=== PATIENT | female | born 1985 | race Caucasian/White ===

== ENCOUNTER 2017-05-28 00:18 | Emergency (ER) | payer OTHER ==
[~2017-05-28] VITALS: Ht 167.6 cm; Wt 79.8 kg
[~2017-05-28 00:18] MED LIST: ESCI10TA PO
--- NOTE | 2017-05-28 01:02 | NUR ---
PT C/O SHOOTING BACK PAIN X 1 DAY. REPORTS HX OF BACK PAIN THAT SHE HAS A PRESCRIPTION FOR, BUT CANNOT REMEMBER THE NAME.
[2017-05-28] MEDS ORDERED: HYDROMORPHONE 1 MG/1 ML DISP.SYRIN IM ONE (01:45)
[2017-05-28] MEDS ORDERED: diphenhydrAMINE 50 MG/1 ML VIAL IM ONE (01:45)
--- NOTE | 2017-05-28 01:56 | NUR ---
Patient discharged to home in stable conditon. Written and verbal after care instructions given. Patient verbalizes understanding of instructions. Ambulated from ER with stable gait. All belongings with patient. Patient will be driven home by signficant other in private vehicle.
[2017-05-28 01:58] VITALS: BP 121/75
[2017-05-28] MEDS ORDERED: HYDROMORPHONE 1 MG/1 ML DISP.SYRIN ONE (02:03)
[2017-05-28] MEDS ORDERED: ONDANSETRON 4 MG/2 ML VIAL ONE (02:04)
== END 2017-05-28 01:59 | disposition home or self-care (01) ==
LOC: ER 00:21
DX: M54.5 Low back pain (principal)
CPT/HCPCS: A4663; J1170; J2405

== ENCOUNTER 2017-07-24 00:45 | Emergency (ER) | payer BC, OTHER ==
[~2017-07-24] VITALS: Ht 162.6 cm; Wt 61.2 kg
--- NOTE | 2017-07-24 01:00 | NUR ---
Pt ambulated to ER, c/o abdominal pain x 1 week, reports missed period, no nausea or vomiting, reports ovarian cyst history, and diarrhea today.
--- NOTE | 2017-07-24 01:04 | NUR ---
Dr. Best at bedside for MSE.
[2017-07-24 01:09] LABS: *BILIRUBIN,URIN NEGATIVE (NEGATIVE); *BLOOD, URINE NEGATIVE (NEGATIVE); *CLARITY,URINE SLIGHTLY CLOUDY (CLEAR); *COLOR,URINE YELLOW (YELLOW); *KETONES,URINE NEGATIVE (NEGATIVE); *PROTEIN,URINE NEGATIVE (NEGATIVE); *UROBILINOGEN,URINE 0.2 E.U./dl (NORMAL); LEUKOCYTE ESTERASE ,URINE NEGATIVE (NEGATIVE); NITRITE, URINE NEGATIVE (NEGATIVE); PH,URINE 5.5 (5.0-8.0); UGLUCOSE NEGATIVE (NEGATIVE)
[2017-07-24 01:12] LABS: *URINE HCG, QUAL POSITIVE (NEGATIVE)
[2017-07-24 01:15] LABS: BACTERIA,URINE MODERATE /HPF (NONE SEEN); MUCUS,URINE MANY /LPF (0-FEW); RBC,URINE 0-3 /HPF (0-3); SQUAMOUS EPITHELIAL CELL,UR MANY /HPF (NONE SEEN)
--- NOTE | 2017-07-24 01:30 | NUR ---
Patient discharged to home in stable conditon. Written and verbal after care instructions given. Patient verbalizes understanding of instructions. Patient out of ER with steady gait, VSS, no acute signs of distress, all belongings taken.
[2017-07-24 01:33] VITALS: BP 118/81
== END 2017-07-24 01:33 | disposition home or self-care (01) ==
LOC: ER 00:45
DX: O26.899 Other specified pregnancy related conditions, unspecified trimester (principal); R10.2 Pelvic and perineal pain; Z3A.00 Weeks of gestation of pregnancy not specified; Z79.899 Other long term (current) drug therapy
CPT/HCPCS: 84703; A4663

== ENCOUNTER 2018-08-22 00:05 | Emergency (ER) | payer BC, OTHER, MEDICAID ==
[~2018-08-22] VITALS: Ht 170.2 cm; Wt 84.4 kg
[2018-08-22 00:37] LABS: *BILIRUBIN,URIN NEGATIVE (NEGATIVE); *BLOOD, URINE NEGATIVE (NEGATIVE); *CLARITY,URINE CLEAR (CLEAR); *COLOR,URINE YELLOW (YELLOW); *KETONES,URINE NEGATIVE (NEGATIVE); *UROBILINOGEN,URINE 0.2 E.U./dl (NORMAL); LEUKOCYTE ESTERASE ,URINE NEGATIVE (NEGATIVE); NITRITE, URINE NEGATIVE (NEGATIVE); UGLUCOSE NEGATIVE (NEGATIVE)
--- NOTE | 2018-08-22 00:39 | NUR ---
Patient ambulated with stable gait. AAOX4. Speech is clear, speaks in complete sentences. No neuro deficits. Patient came in for c/o lower abdominal pain x1 week. Pain 4/10. Non radiating, intermittent pain. Respiratory even and unlabored, no cough no sob. No cardiovascular distress noted. Patient in bed at lowest position, side rails upx2, call light within reach. Fall precautions implemented per protocol.
[2018-08-22 00:42] LABS: *URINE HCG, QUAL NEGATIVE (NEGATIVE); BACTERIA,URINE NONE SEEN /HPF (NONE SEEN); RBC,URINE 0-3 /HPF (0-3); SQUAMOUS EPITHELIAL CELL,UR FEW /HPF (NONE SEEN); WBC,URINE 0-3 /HPF (0-3)
--- NOTE | 2018-08-22 00:54 | NUR ---
Patient discharged to home in stable conditon. Written and verbal after care instructions given. Patient verbalizes understanding of instructions. Patient ambulated with stable gait.
[2018-08-22 00:59] VITALS: BP 125/90
== END 2018-08-22 00:59 | disposition home or self-care (01) ==
LOC: ER 00:08
DX: R10.2 Pelvic and perineal pain (principal); Z79.899 Other long term (current) drug therapy
CPT/HCPCS: 84703; A4663

== ENCOUNTER 2019-11-08 20:12 | Emergency (ER) | payer BC, OTHER ==
[~2019-11-08] VITALS: Ht 170.2 cm; Wt 81.6 kg
[2019-11-08] MEDS ORDERED: CEPH-570 PO (20:20)
[2019-11-08] MEDS ORDERED: IBUP-1955 PO (20:20)
[2019-11-08] MEDS ORDERED: HYDROCODONE/APAP 5-325MG TABLET PO ONE (20:45)
[2019-11-08] MEDS ORDERED: PHENAZOPYRIDINE HCL 100 MG TABLET ONE (20:45)
[2019-11-08] MEDS ORDERED: HYDROCODONE/APAP 5-325MG TABLET ONE (20:45)
[2019-11-08] MEDS ORDERED: PHENAZOPYRIDINE HCL 100 MG TABLET PO ONE (20:45)
[2019-11-08 20:47] LABS: *URINE HCG, QUAL NEGATIVE (NEGATIVE)
[2019-11-08 20:48] LABS: *BILIRUBIN,URIN NEGATIVE (NEGATIVE); *BLOOD, URINE 1+ (NEGATIVE); *CLARITY,URINE SLIGHTLY CLOUDY (CLEAR); *COLOR,URINE LIGHT YELLOW (YELLOW); *KETONES,URINE NEGATIVE (NEGATIVE); *UROBILINOGEN,URINE 0.2 E.U./dl (NORMAL); LEUKOCYTE ESTERASE ,URINE 2+ (NEGATIVE); NITRITE, URINE NEGATIVE (NEGATIVE); UGLUCOSE NEGATIVE (NEGATIVE)
[2019-11-08 20:58] LABS: BACTERIA,URINE FEW /HPF (NONE SEEN); SQUAMOUS EPITHELIAL CELL,UR FEW /HPF (NONE SEEN)
--- NOTE | 2019-11-08 21:15 | NUR ---
Patient discharged to home in stable condition. Written and verbal after care instructions given. Patient verbalizes understanding of instructions. Stressed follow up or return to ER for worsening s/s. Ambulated from Er with stable gait. All belongings with patient.
[2019-11-08 21:16] VITALS: BP 128/81
== END 2019-11-08 21:16 | disposition home or self-care (01) ==
LOC: ER 20:13
DX: N39.0 Urinary tract infection, site not specified (principal)
CPT/HCPCS: 84703; 87086; A4663

== ENCOUNTER 2020-05-23 12:01 | Emergency (ER) | payer BC, OTHER ==
[~2020-05-23] VITALS: Ht 170.2 cm; Wt 81.6 kg
[~2020-05-23 12:01] MED LIST changes: +CEPH-570 PO; +IBUP-1955 PO
--- NOTE | 2020-05-23 12:35 | NUR ---
Patient discharged to home in stable condition. Written and verbal after care instructions given. Patient verbalizes understanding of instructions. Stressed follow up or return to ER for worsening s/s.
== END 2020-05-23 12:36 | disposition home or self-care (01) ==
LOC: ER 12:01
DX: U07.1 COVID-19 (principal); Z87.898 Personal history of other specified conditions
CPT/HCPCS: 99283; U0003; A4663

== ENCOUNTER 2020-06-26 21:14 | Emergency (ER) | payer BC, OTHER ==
[~2020-06-26] VITALS: Ht 170.2 cm; Wt 81.6 kg
--- NOTE | 2020-06-26 21:40 | NUR ---
Dr. Hobbs at bedside for MSE.
--- NOTE | 2020-06-26 21:55 | NUR ---
Xray at bedside.
[2020-06-26] MEDS ORDERED: HYDROCODONE/APAP 10-325 MG TABLET ONE (22:42)
[2020-06-26] MEDS ORDERED: HYDROCODONE/APAP 10-325 MG TABLET PO ONE (22:45)
--- NOTE | 2020-06-26 22:49 | NUR ---
Pt provided urine sample, sent to lab.
[2020-06-26 22:53] LABS: *URINE HCG, QUAL NEGATIVE (NEGATIVE)
[2020-06-26] MEDS ORDERED: KETOROLAC TROMETHAMINE 60 MG INJ IM ONE ×2 (23:45→23:46)
--- NOTE | 2020-06-27 | NUR ---
Patient discharged to home in stable condition. Written and verbal after care instructions given. Patient verbalizes understanding of instructions. Stressed follow up or return to ER for worsening s/s. Patient out of ER with steady gait, no acute signs of distress, VSS, all belongings taken, provided with copies of labs and xray.
[2020-06-27 00:01] VITALS: BP 133/90
== END 2020-06-27 00:01 | disposition home or self-care (01) ==
LOC: ER 21:14
DX: M79.662 Pain in left lower leg (principal); M79.661 Pain in right lower leg; S80.811A Abrasion, right lower leg, initial encounter; V43.62XA Car passenger injured in collision with other type car in traffic accident, initial encounter; Y92.411 Interstate highway as the place of occurrence of the external cause; R26.2 Difficulty in walking, not elsewhere classified
CPT/HCPCS: 73562; 73590 ×2; 84703; 96372; 99284; J1885; A4663

== ENCOUNTER 2020-08-31 22:29 | Emergency (ER) | payer BC, OTHER ==
[~2020-08-31] VITALS: Ht 170.2 cm; Wt 81.2 kg
[2020-08-31] MEDS: PSEUDOEPHEDRINE HCL 30 MG TABLET PO ONE (22:59)
[2020-08-31] MEDS ORDERED: PSEUDOEPHEDRINE HCL 30 MG TABLET ONE ×2 (23:03→23:04)
[2020-08-31] MEDS ORDERED: PSEU120T57 PO (23:38)
[2020-09-01 01:00] VITALS: BP 115/77
== END 2020-09-01 01:00 | disposition home or self-care (01) ==
LOC: ER 22:30
DX: J02.8 Acute pharyngitis due to other specified organisms (principal); J31.0 Chronic rhinitis; Z20.822 Contact with and (suspected) exposure to COVID-19; Z86.16 Personal history of COVID-19
CPT/HCPCS: 71045; 87400; A4663

== ENCOUNTER 2020-10-06 08:14 | Emergency (ER) | payer BC, OTHER ==
[~2020-10-06] VITALS: Ht 170.2 cm; Wt 81.6 kg
[~2020-10-06 08:14] MED LIST changes: +PSEU120T57 PO
[2020-10-06 08:51] LABS: *BILIRUBIN,URIN NEGATIVE (NEGATIVE); *BLOOD, URINE NEGATIVE (NEGATIVE); *CLARITY,URINE CLEAR (CLEAR); *COLOR,URINE YELLOW (YELLOW); *KETONES,URINE NEGATIVE (NEGATIVE); *URINE HCG, QUAL POSITIVE (NEGATIVE); *UROBILINOGEN,URINE 0.2 E.U./dl (NORMAL); LEUKOCYTE ESTERASE ,URINE NEGATIVE (NEGATIVE); NITRITE, URINE NEGATIVE (NEGATIVE); PH,URINE 5.5 (5.0-8.0); UGLUCOSE NEGATIVE (NEGATIVE)
--- NOTE | 2020-10-06 08:56 | NUR ---
Dr Arana at the bedside for MSE.
[2020-10-06 09:19] LABS: BASOPHILS # (AUTO) 0.1 K/uL (0.0-8.0); BASOPHILS % (AUTO) 0.9 % (0.0-2.0); EOSINOPHILS # (AUTO) 0.1 K/uL (0.0-0.7); HEMATOCRIT 40.9 % (31.2-41.9); HEMOGLOBIN 13.4 g/dL (10.9-14.3); LYMPHOCYTES # (AUTO) 1.7 K/uL (20.0-40.0); LYMPHOCYTES % (AUTO) 16.8 % (20.5-51.5); MEAN CORPUSCULAR HEMOGLOBIN 26.9 uug (24.7-32.8); MEAN CORPUSCULAR HGB CONC 33 g/dL (32.3-35.6); MEAN CORPUSCULAR VOLUME 82.1 fL (75.5-95.3); MONOCYTES # (AUTO) 0.7 K/uL (2.0-10.0); MONOCYTES % (AUTO) 6.6 % (0.0-11.0); NEUTROPHILS # (AUTO) 7.4 K/uL (1.8-8.9); NEUTROPHILS % (AUTO) 74.7 % (38.5-71.5); PLATELET COUNT (AUTO) 224 K/uL (179-408); RED BLOOD CELL COUNT(AUTO) 4.98 MIL/uL (3.63-4.92); WHITE BLOOD COUNT (AUTO) 9.9 K/uL (3.8-11.8)
--- NOTE | 2020-10-06 10:28 | NUR ---
Female consulting sales executive accompanied female patient for (U/S tech).
[2020-10-06 10:48] VITALS: BP 131/77
== END 2020-10-06 10:49 | disposition home or self-care (01) ==
LOC: ER 08:14
DX: R10.30 Lower abdominal pain, unspecified (principal); Z33.1 Pregnant state, incidental; Z86.79 Personal history of other diseases of the circulatory system
CPT/HCPCS: 36415; 76856; 84703; 85025; 86850; 86900; 86901; A4663

== ENCOUNTER 2020-10-08 17:42 | Emergency (ER) | payer BC, OTHER ==
[~2020-10-08] VITALS: Ht 170.2 cm; Wt 81.6 kg
[2020-10-08] MEDS: ACETAMINOPHEN 325 MG TABLET PO ONE ×2 (18:27→18:31)
[2020-10-08] MEDS ORDERED: ACETAMINOPHEN 325 MG TABLET ONE (18:33)
--- NOTE | 2020-10-08 18:47 | NUR ---
ZAIDA tech at bedside. technical editor at bedside. Pt able to tolerate, at bedside. NAD VSS RA monitored accordingly
[2020-10-08 18:59] LABS: BASOPHILS # (AUTO) 0.1 K/uL (0.0-8.0); BASOPHILS % (AUTO) 1.1 % (0.0-2.0); EOSINOPHILS # (AUTO) 0.2 K/uL (0.0-0.7); EOSINOPHILS % (AUTO) 1.7 % (0.0-7.0); HEMATOCRIT 40.5 % (31.2-41.9); HEMOGLOBIN 13.4 g/dL (10.9-14.3); LYMPHOCYTES % (AUTO) 19.2 % (20.5-51.5); MEAN CORPUSCULAR HEMOGLOBIN 27.3 uug (24.7-32.8); MEAN CORPUSCULAR HGB CONC 33 g/dL (32.3-35.6); MEAN CORPUSCULAR VOLUME 82.6 fL (75.5-95.3); MONOCYTES # (AUTO) 0.8 K/uL (2.0-10.0); MONOCYTES % (AUTO) 7.5 % (0.0-11.0); NEUTROPHILS # (AUTO) 7.4 K/uL (1.8-8.9); NEUTROPHILS % (AUTO) 70.5 % (38.5-71.5); PLATELET COUNT (AUTO) 221 K/uL (179-408); WHITE BLOOD COUNT (AUTO) 10.4 K/uL (3.8-11.8)
[2020-10-08 19:03] LABS: CREATININE 0.8 mg/dL (0.6-1.3); POTASSIUM 3.4 mmol/L (3.5-5.1)
--- NOTE | 2020-10-08 19:07 | NUR ---
Report given to Pooja ROY. ANT VSS RA with [facility] at bedside. pending disposition. pending lab results
--- NOTE | 2020-10-08 19:13 | NUR ---
received patient awake , US on going
[2020-10-08 19:17] LABS: BILIRUBIN,DIRECT 0.1 mg/dL (0.0-0.2); BILIRUBIN,TOTAL 0.2 mg/dL (0.2-1.0); TOTAL PROTEIN, SERUM 9.1 g/dL (6.4-8.2)
--- NOTE | 2020-10-08 19:43 | NUR ---
DR REID INFORMED THE PATIENT AND AT BEDSIDE FINDINGS OF US PELVIC
--- NOTE | 2020-10-08 19:47 | NUR ---
DISCHARGE SUMMARY , CD OF THE US AND LETTER EXCUSED FOR WORK WERE GIVEN AND EXPLAINED TO THE PATIENT , AND TO FOLLOW UP WITH MEDICAID BILLER
== END 2020-10-08 20:11 | disposition home or self-care (01) ==
LOC: ER 17:42
DX: O20.0 Threatened abortion (principal)
CPT/HCPCS: 36415; 76856; 85025; 86900; 86901; A4663

== ENCOUNTER 2020-10-10 10:11 | Outpatient (CLI) | payer BC, OTHER | END 2020-10-10 23:59 | disposition home or self-care (01) | LOC: LAB 10:11 | DX: O20.0 Threatened abortion (principal); Z3A.00 Weeks of gestation of pregnancy not specified | CPT/HCPCS: 36415 ==

== ENCOUNTER 2020-10-12 09:52 | Outpatient (CLI) | payer BC, OTHER | END 2020-10-12 23:59 | disposition home or self-care (01) | LOC: LAB 09:52 | DX: O20.0 Threatened abortion (principal); Z3A.00 Weeks of gestation of pregnancy not specified | CPT/HCPCS: 36415 ==

== ENCOUNTER 2020-10-18 12:16 | Emergency (ER) | payer BC, OTHER ==
[~2020-10-18] VITALS: Ht 170.2 cm; Wt 84.4 kg
[2020-10-18] MEDS ORDERED: ONDANSETRON 4 MG/2 ML VIAL IV ONE (12:45)
[2020-10-18] MEDS ORDERED: IV NORMAL SALINE 1000 ML BAG IV ONE (12:45)
[2020-10-18 13:00] LABS: BASOPHILS % (AUTO) 0.4 % (0.0-2.0); EOSINOPHILS % (AUTO) 0.5 % (0.0-7.0); HEMATOCRIT 38.1 % (31.2-41.9); HEMOGLOBIN 12.6 g/dL (10.9-14.3); LYMPHOCYTES # (AUTO) 0.6 K/uL (20.0-40.0); LYMPHOCYTES % (AUTO) 8.3 % (20.5-51.5); MEAN CORPUSCULAR HEMOGLOBIN 27.5 uug (24.7-32.8); MEAN CORPUSCULAR HGB CONC 33 g/dL (32.3-35.6); MEAN CORPUSCULAR VOLUME 82.9 fL (75.5-95.3); MONOCYTES # (AUTO) 0.3 K/uL (2.0-10.0); MONOCYTES % (AUTO) 5.2 % (0.0-11.0); NEUTROPHILS # (AUTO) 5.7 K/uL (1.8-8.9); NEUTROPHILS % (AUTO) 85.6 % (38.5-71.5); PLATELET COUNT (AUTO) 157 K/uL (179-408); RED BLOOD CELL COUNT(AUTO) 4.59 MIL/uL (3.63-4.92); WHITE BLOOD COUNT (AUTO) 6.7 K/uL (3.8-11.8)
[2020-10-18] MEDS ORDERED: ONDANSETRON 4 MG/2 ML VIAL ONE (13:03)
[2020-10-18 13:06] LABS: CREATININE 0.6 mg/dL (0.6-1.3); POTASSIUM 3.7 mmol/L (3.5-5.1)
[2020-10-18 13:12] LABS: BILIRUBIN,DIRECT 0.1 mg/dL (0.0-0.2); BILIRUBIN,TOTAL 0.4 mg/dL (0.2-1.0); TOTAL PROTEIN, SERUM 7.6 g/dL (6.4-8.2)
--- NOTE | 2020-10-18 14:08 | NUR ---
Patient discharged to home in stable condition. Written and verbal after care instructions given. Patient verbalizes understanding of instructions. Stressed follow up or return to ER for worsening s/s.pt walks in steady gait. nausea improved.
[2020-10-18 14:09] VITALS: BP 108/70
== END 2020-10-18 14:10 | disposition home or self-care (01) ==
LOC: ER 12:17
DX: O21.9 Vomiting of pregnancy, unspecified (principal); Z3A.01 Less than 8 weeks gestation of pregnancy
CPT/HCPCS: 36415; 80048; 80076; 83690; 84702; 85025; 96361; 96374; 99284; J2405; A4663; J7030

== ENCOUNTER 2020-10-26 14:53 | Outpatient (CLI) | payer BC, OTHER | END 2020-10-26 23:59 | disposition home or self-care (01) | LOC: LAB 14:53 | PROVIDERS: ATTEND Obstetrics & Gynecology Gynecology | DX: O02.1 Missed abortion (principal) | CPT/HCPCS: 36415 ==

== ENCOUNTER 2020-12-23 09:00 | Emergency (ER) | payer BC, OTHER ==
[~2020-12-23] VITALS: Ht 170.2 cm; Wt 81.6 kg
--- NOTE | 2020-12-23 09:15 | NUR ---
at bedside for assessment
--- NOTE | 2020-12-23 09:41 | NUR ---
Patient giving urine specimen at this time
[2020-12-23 10:05] LABS: *URINE HCG, QUAL NEGATIVE (NEGATIVE)
[2020-12-23] MEDS ORDERED: D-ME473S63 PO (10:34)
--- NOTE | 2020-12-23 10:56 | NUR ---
Covid Negative, intermittent cough noted, patient states she will return to work at this time,Patient discharged to home in stable condition. Written and verbal after care instructions given. Patient verbalizes understanding of instructions. Stressed follow up or return to ER for worsening s/s.
[2020-12-23 11:13] VITALS: BP 108/77
== END 2020-12-23 11:00 | disposition home or self-care (01) ==
LOC: ER 09:00
DX: J20.9 Acute bronchitis, unspecified (principal); Z20.822 Contact with and (suspected) exposure to COVID-19
CPT/HCPCS: 71045; 84703; A4663

== ENCOUNTER 2021-02-20 09:30 | Emergency (ER) | payer BC, OTHER ==
[~2021-02-20] VITALS: Ht 170.2 cm; Wt 81.6 kg
[~2021-02-20 09:30] MED LIST changes: +D-ME473S63 PO
--- NOTE | 2021-02-20 10:18 | NUR ---
Dr cabrera at the bedside for MSE.
[2021-02-20] MEDS ORDERED: LORAZEPAM 2 MG/1 ML VIAL IM ONE ×2 (10:30→15:00)
[2021-02-20] MEDS ORDERED: LORAZEPAM 2 MG/1 ML VIAL ONE ×2 (10:32→14:57)
--- NOTE | 2021-02-20 10:57 | NUR ---
Patient is resting comfortably in bed with eyes closed, NAD noted.
[2021-02-20 11:25] LABS: HEMATOCRIT 37.3 % (31.2-41.9); MEAN CORPUSCULAR HEMOGLOBIN 27.3 uug (24.7-32.8); MEAN CORPUSCULAR VOLUME 81.7 fL (75.5-95.3); PLATELET COUNT (AUTO) 214 K/uL (179-408)
[2021-02-20 11:46] LABS: BILIRUBIN,DIRECT 0.1 mg/dL (0.0-0.2); BILIRUBIN,TOTAL 0.5 mg/dL (0.2-1.0); CREATININE 0.7 mg/dL (0.6-1.3); POTASSIUM 3.7 mmol/L (3.5-5.1); TOTAL PROTEIN, SERUM 8.1 g/dL (6.4-8.2)
--- NOTE | 2021-02-20 14:19 | NUR ---
Pt is awake talking to friend and crying. Pt states her anxiety is coming back, but like to wait before taking more medication.
--- NOTE | 2021-02-20 16:05 | NUR ---
Pt states feeling better and resting in bed.
[2021-02-20 17:10] VITALS: BP 119/67
== END 2021-02-20 17:10 | disposition home or self-care (01) ==
LOC: ER 09:30
DX: R07.9 Chest pain, unspecified (principal); F41.9 Anxiety disorder, unspecified; R94.31 Abnormal electrocardiogram [ECG] [EKG]
CPT/HCPCS: 36415; 71045; 80048; 80076; 84484 ×2; 84702; 85025; 93005; 96372 ×2; 99285; J2060 ×2; 70030-TC; A4663

== ENCOUNTER 2021-02-24 12:22 | Emergency (ER) | payer BC, OTHER ==
[~2021-02-24] VITALS: Ht 170.2 cm; Wt 81.6 kg
[2021-02-24] MEDS ORDERED: LORAZEPAM 0.5 MG TABLET PO ONE (12:45)
[2021-02-24] MEDS ORDERED: LORAZEPAM 1 MG TABLET ONE (12:52)
[2021-02-24 13:19] LABS: HEMATOCRIT 36.3 % (31.2-41.9); MEAN CORPUSCULAR HEMOGLOBIN 27.5 uug (24.7-32.8); MEAN CORPUSCULAR VOLUME 81.3 fL (75.5-95.3); PLATELET COUNT (AUTO) 198 K/uL (179-408)
[2021-02-24 13:22] LABS: CREATININE 0.7 mg/dL (0.6-1.3); POTASSIUM 3.6 mmol/L (3.5-5.1)
[2021-02-24] MEDS ORDERED: IBUPROFEN 600 MG TABLET PO ONE (14:15)
[2021-02-24] MEDS ORDERED: IBUPROFEN 600 MG TABLET ONE (14:23)
--- NOTE | 2021-02-24 14:37 | NUR ---
Patient is eating crackers, for disposition, NAD.
--- NOTE | 2021-02-24 14:54 | NUR ---
Patient is now for discharged to home in stable condition, pending ride/pick-up. Written and verbal after care instructions given to patient. Patient verbalized understanding and compliance of instructions. Stressed follow up with her primary doctor or psychiatrist or return to ER for worsening s/s.
--- NOTE | 2021-02-24 15:33 | NUR ---
Patient left ER with steady gait and stable condition. Someone is driving her home.
[2021-02-24 15:44] VITALS: BP 120/71
== END 2021-02-24 15:33 | disposition home or self-care (01) ==
LOC: ER 12:23
DX: F41.9 Anxiety disorder, unspecified (principal)
CPT/HCPCS: 36415; 70030-TC; 85025; 93005; A4663

== ENCOUNTER 2021-05-28 18:58 | Emergency (ER) | payer BC, OTHER ==
--- NOTE | 2021-05-28 22:03 | NUR ---
Pt not in waiting room.
[2021-05-29] MEDS ORDERED: SERT25TA PO (13:28)
== END 2021-05-28 22:03 | disposition left against medical advice (07) ==
LOC: ER 19:05
DX: Z53.21 Procedure and treatment not carried out due to patient leaving prior to being seen by health care provider (principal)

== ENCOUNTER 2021-05-29 12:53 | Emergency (ER) | payer BC, OTHER ==
[~2021-05-29] VITALS: Ht 170.2 cm; Wt 81.2 kg
[2021-05-29] MEDS ORDERED: SERT25TA PO (13:28)
== END 2021-05-29 13:27 | disposition home or self-care (01) ==
LOC: ER 12:53
DX: R50.9 Fever, unspecified (principal); R11.2 Nausea with vomiting, unspecified; R52 Pain, unspecified; Z20.822 Contact with and (suspected) exposure to COVID-19
CPT/HCPCS: 87426; 99283; U0003; A4663

== ENCOUNTER 2021-08-10 08:28 | Inpatient (IN) | payer BC, OTHER ==
[~2021-08-10] VITALS: Ht 170.2 cm; Wt 84.4 kg
[~2021-08-10 08:28] MED LIST changes: -CEPH-570 PO; -D-ME473S63 PO; -ESCI10TA PO; -PSEU120T57 PO; +SERT25TA PO
--- NOTE | 2021-08-10 08:45 | NUR ---
at bedside to examine pt.
[2021-08-10] MEDS ORDERED: IV NORMAL SALINE 1000 ML BAG IV ONE ×2 (09:15→10:45)
[2021-08-10] MEDS ORDERED: ONDANSETRON 4 MG/2 ML VIAL IV ONE ×2 (09:15→11:30)
[2021-08-10 09:18] LABS: HEMATOCRIT 35.1 % (31.2-41.9); MEAN CORPUSCULAR VOLUME 78.8 fL (75.5-95.3); PLATELET COUNT (AUTO) 233 K/uL (179-408)
[2021-08-10 09:25] LABS: CREATININE 0.8 mg/dL (0.6-1.3); POTASSIUM 4.8 mmol/L (3.5-5.1)
[2021-08-10 09:30] LABS: BILIRUBIN,DIRECT 0.1 mg/dL (0.0-0.2); BILIRUBIN,TOTAL 0.3 mg/dL (0.2-1.0); TOTAL PROTEIN, SERUM 7.5 g/dL (6.4-8.2)
[2021-08-10] MEDS ORDERED: ONDANSETRON 4 MG/2 ML VIAL ONE ×2 (09:32→11:41)
[2021-08-10 09:50] LABS: THYROID STIMULATING HORMONE 1.355 mIU/mL (0.358-3.740)
--- NOTE | 2021-08-10 10:06 | NUR ---
pt. with c/of numbness to left fore arm. Neuro assesment performed and pt. able to wiggle her fingers, bend her arm IV fluid finished at this time. notified orders received.
[2021-08-10] MEDS ORDERED: LORAZEPAM 2 MG/1 ML VIAL IV ONE (10:15)
[2021-08-10] MEDS ORDERED: LORAZEPAM 2 MG/1 ML VIAL ONE (10:26)
[2021-08-10] MEDS ORDERED: ACETAMINOPHEN ES 500 MG TABLET PO ONE (11:00)
[2021-08-10] MEDS ORDERED: KETOROLAC TROMETHAMINE 30 MG INJ IVP ONE (11:15)
[2021-08-10] MEDS ORDERED: ACETAMINOPHEN ES 500 MG TABLET ONE (11:15)
[2021-08-10] MEDS ORDERED: KETOROLAC TROMETHAMINE 30 MG INJ ONE ×2 (11:24→11:39)
[2021-08-10] MEDS ORDERED: MORPHINE SULFATE 2 MG/1 ML DISP.SYRIN IV ONE (11:30)
--- NOTE | 2021-08-10 11:35 | NUR ---
both morphine and zofran not given pt. stating that "pain is aliviated with toradol".
[2021-08-10] MEDS ORDERED: MORPHINE SULFATE 2 MG/1 ML DISP.SYRIN ONE (11:40)
--- NOTE | 2021-08-10 11:58 | NUR ---
Hr of 87, SBP of 124/79. Pelvic US in progress.
--- NOTE | 2021-08-10 14:16 | NUR ---
pt. up to room 320 via wheelchair. AAOx4.NSr 69, sbp 124/77. rr28. 98% on RA
[2021-08-10 14:29] VITALS: BP 112/63
--- NOTE | 2021-08-10 14:30 | NUR ---
ADMITTED VIA W/C ACCOMPANIED BY ER NURSE. ORIENTED TO SURROUNDINGS. STATES ABD. SUBSIDING.
[2021-08-10] MEDS ORDERED: SERT50TA PO (15:17)
[2021-08-10 16:00] VITALS: BP 115/77
[2021-08-10] MEDS ORDERED: ZOLPIDEM 5 MG TABLET PO PRN (16:00)
[2021-08-10] MEDS ORDERED: MAGNESIUM HYDROXIDE 30 ML LIQUID UDC PO PRN (16:00)
[2021-08-10] MEDS ORDERED: ALPRAZOLAM 0.5 MG TABLET PO PRN (16:00)
[2021-08-10] MEDS ORDERED: ONDANSETRON 4 MG/2 ML VIAL IV PRN (16:00)
[2021-08-10] MEDS ORDERED: MORPHINE SULFATE 2 MG/1 ML DISP.SYRIN IV PRN (16:00)
[2021-08-10] MEDS ORDERED: ACETAMINOPHEN 325 MG TABLET PO PRN (16:00)
--- NOTE | 2021-08-10 19:30 | NUR ---
Received pt lying in bed. AO x 4. No signs of acute distress. Able to walk to bathroom and make needs known. Call lights within reach. Safety measures initiated.
[2021-08-10 20:15] VITALS: BP 122/59
[2021-08-10] MEDS ORDERED: IV NS 1000 ML 1,000 ML IV PRN (21:30)
[2021-08-11 04:06] VITALS: BP 102/59
[2021-08-11 04:10] VITALS: BP 110/69
--- NOTE | 2021-08-11 05:30 | NUR ---
Anni given for sleep. Pt slept comfortably throughout the night. IV in L hand running NS at 70 mls. No signs of acute distress. Able to make needs known. Call lights within reach. Safety measures maintained. Will endorse to am shift.
[2021-08-11] MEDS ORDERED: PANTOPRAZOLE SODIUM 40 MG TABLET.DR PO SCH (07:00)
[2021-08-11 07:13] LABS: HEMATOCRIT 34.2 % (31.2-41.9); MEAN CORPUSCULAR HEMOGLOBIN 26.2 uug (24.7-32.8); MEAN CORPUSCULAR VOLUME 78.6 fL (75.5-95.3); PLATELET COUNT (AUTO) 208 K/uL (179-408)
--- NOTE | 2021-08-11 07:30 | NUR ---
Awake, alert, oriented x 4. Denies pain and dizziness. IVF infusing
[2021-08-11 07:41] LABS: CREATININE 0.8 mg/dL (0.6-1.3); MAGNESIUM 2.1 mg/dL (1.8-2.4); PHOSPHOROUS 3.5 mg/dL (2.5-4.9); POTASSIUM 4.1 mmol/L (3.5-5.1)
[2021-08-11] MEDS ORDERED: SERTRALINE HCL 50 MG TABLET PO SCH (09:00)
[2021-08-11 09:21] LABS: IRON, SERUM 33 ug/dL (50-175)
[2021-08-11 10:55] VITALS: BP 110/69
[2021-08-11] MEDS ORDERED: FERR325T28 PO (11:03)
[2021-08-11] MEDS ORDERED: MULT-594 PO (11:03)
--- NOTE | 2021-08-11 11:47 | NUR ---
With discharge order to home. Prescription and DC Instruction given to patient, verbalized understanding. Saline lock removed. Went home per ambulatory in fair condition, not in distress. Per Dr. Wood, okay to drive herself home and patient comfortable driving home.
== END 2021-08-11 11:25 | disposition home or self-care (01) | DRG 761 ==
LOC: ER 08:28 → MEDSURG3 13:59
PROVIDERS: ADMIT Internal Medicine; ATTEND Internal Medicine
DX: N94.6 Dysmenorrhea, unspecified (principal); R53.1 Weakness; E66.9 Obesity, unspecified; F32.A Depression, unspecified; Z20.822 Contact with and (suspected) exposure to COVID-19; D50.9 Iron deficiency anemia, unspecified; E78.5 Hyperlipidemia, unspecified; Z68.29 Body mass index [BMI] 29.0-29.9, adult
CPT/HCPCS: 36415; 83550; 83690; 83735; 84100; 84443; 85025; 93005; A4663; A9150; G0378; J1885; J2060; J2270; J2405; J7030

== ENCOUNTER 2021-09-25 20:50 | Inpatient (IN) | payer BC, OTHER ==
[~2021-09-25] VITALS: Ht 170.2 cm; Wt 81.8 kg
[~2021-09-25 20:50] MED LIST changes: +FERR325T28 PO; -IBUP-1955 PO; +MULT-594 PO; -SERT25TA PO; +SERT50TA PO
--- NOTE | 2021-09-25 21:01 | NUR ---
Edna GANN AT BEDSIDE, MSE IN PROGRESS.
[2021-09-25 21:10] LABS: *BLOOD, URINE 1+ (NEGATIVE); *CLARITY,URINE CLEAR (CLEAR); *COLOR,URINE Orange (YELLOW); *KETONES,URINE 1+ (NEGATIVE); LEUKOCYTE ESTERASE ,URINE 3+ (NEGATIVE); UGLUCOSE TRACE (NEGATIVE)
[2021-09-25] MEDS ORDERED: PHENAZOPYRIDINE HCL 100 MG TABLET PO ONE (21:15)
[2021-09-25] MEDS ORDERED: PHENAZOPYRIDINE HCL 100 MG TABLET ONE (21:20)
--- NOTE | 2021-09-25 21:23 | NUR ---
LAB AT BEDSIDE.
[2021-09-25 21:37] LABS: CARBON DIOXIDE 28 mmol/L (21-32); CHLORIDE 100 mmol/L (98-107); CREATININE 0.8 mg/dL (0.6-1.3); GLUCOSE 89 mg/dL (74-106); UREA NITROGEN, BLOOD 16 mg/dL (7-18)
[2021-09-25 21:40] LABS: *BILIRUBIN,URIN 1+ (NEGATIVE); NITRITE, URINE NEGATIVE (NEGATIVE)
[2021-09-25 21:44] LABS: HEMATOCRIT 31.2 % (31.2-41.9); MEAN CORPUSCULAR HEMOGLOBIN 25.1 uug (24.7-32.8); MEAN CORPUSCULAR VOLUME 75.4 fL (75.5-95.3); PLATELET COUNT (AUTO) 249 K/uL (179-408)
[2021-09-25 21:47] LABS: ALANINE AMINOTRANSFERASE 23 U/L (14-59); ALKALINE PHOSPHATASE 61 U/L (50-136); ASPARTATE AMINOTRANSFERASE 14 U/L (15-37); BILIRUBIN,TOTAL 0.3 mg/dL (0.2-1.0); TOTAL PROTEIN, SERUM 7.7 g/dL (6.4-8.2)
[2021-09-25 21:51] LABS: BACTERIA,URINE MODERATE /HPF (NONE SEEN); SQUAMOUS EPITHELIAL CELL,UR MODERATE /HPF (NONE SEEN); WBC,URINE 20-50 /HPF (0-3)
[2021-09-25 21:52] LABS: *URINE HCG, QUAL NEGATIVE (NEGATIVE)
--- NOTE | 2021-09-25 21:53 | NUR ---
US (KATE) AT BEDSIDE.
--- NOTE | 2021-09-25 22:39 | NUR ---
Called Dr. Alexandre (Obstetrics and Gynecology) at [phone], on phone with Dr. Benny Bishop
[2021-09-25] MEDS ORDERED: HYDROMORPHONE 1 MG/1 ML DISP.SYRIN IV ONE (22:45)
[2021-09-25] MEDS ORDERED: LORAZEPAM 2 MG/1 ML VIAL IV ONE (22:45)
[2021-09-25] MEDS ORDERED: NITROFURANTOIN/NITROFURAN MAC 100 MG CAPSULE PO ONE ×2 (22:45→22:51)
[2021-09-25] MEDS ORDERED: LORAZEPAM 2 MG/1 ML VIAL ONE (22:52)
[2021-09-25] MEDS ORDERED: HYDROMORPHONE 1 MG/1 ML DISP.SYRIN ONE (22:52)
--- NOTE | 2021-09-25 23:29 | NUR ---
GAVE REPORT TO
[2021-09-26] VITALS (7 sets, daily range): BP systolic 100–126; BP diastolic 55–83
[2021-09-26] MEDS ORDERED: ACETAMINOPHEN 650 MG SUPP.RECT RC PRN (01:15)
[2021-09-26] MEDS ORDERED: ONDANSETRON 4 MG/2 ML VIAL IV PRN (01:15)
[2021-09-26] MEDS ORDERED: IV D5/ 0.9% NACL 1,000 ML IV PRN (01:15)
--- NOTE | 2021-09-26 01:15 | NUR ---
Pt. admitted to M/S , under care of Dr. Norwood Belongs List completed Pt admitted in stable condition, denies any pain/discomfort. No changes in LOC. Denies n/v, AGARWAL, dizzyness.
--- NOTE | 2021-09-26 01:20 | NUR ---
Received pt from er via [facility]. Under the care of . dx:UTI Pt in no acute dostress. Pt alert awake, and orientedx4. Belonging list done. Admission process and care plan initiated. Safety and comfort provided.Will continue to monitor.
[2021-09-26] MEDS ORDERED: CEFTRIAXONE 1 G in IV DEXTROSE 5% 50 ML IV SCH (02:00)
[2021-09-26] MEDS: MORPHINE SULFATE 2 MG/1 ML DISP.SYRIN IV PRN ×4 (02:08→17:59)
[2021-09-26] MEDS ORDERED: CEFTRIAXONE /D5W 50ML IVPB **ER PYXIS IV ONE (02:38)
--- NOTE | 2021-09-26 03:02 | NUR ---
Pt given morphine at 0208H for pain . Pt tolerated it well. After 30 minutes pt stated she felt better and sleepy. Pt in no acute distress. Will continue to monitor.
--- NOTE | 2021-09-26 06:27 | NUR ---
Pt in no acute distress. Pt on npo. Safety and comfort provided. All needs are met. Will endorse to incoming nurse for continuity of care.
[2021-09-26 06:47] LABS: HEMATOCRIT 31.5 % (31.2-41.9); MEAN CORPUSCULAR HEMOGLOBIN 25.5 uug (24.7-32.8); MEAN CORPUSCULAR VOLUME 76.1 fL (75.5-95.3); PLATELET COUNT (AUTO) 209 K/uL (179-408)
--- NOTE | 2021-09-26 06:47 | NUR ---
at 0641H morphine 2mg prn given to pt for 8/10 left abdominal pain. Pt tolerated it well. Will endorse to incoming nurse for continuity of care.
[2021-09-26 07:17] LABS: BILIRUBIN,TOTAL 0.2 mg/dL (0.2-1.0); CREATININE 0.8 mg/dL (0.6-1.3); PHOSPHOROUS 4.1 mg/dL (2.5-4.9); POTASSIUM 3.4 mmol/L (3.5-5.1); TOTAL PROTEIN, SERUM 6.8 g/dL (6.4-8.2)
--- NOTE | 2021-09-26 07:44 | NUR ---
RESTING COMFORTABLY IN BED DENIES PAIN OR DISCOMFORTS AT THIS TIME REMAIN NPO ORDERED AWAITING FOR DR LUNSFORD TO SEE PATIENT TODAY IVF IN PROGRESS ORDERED.CALL OLIGHT AND PERSONAL BELONGINGS ARE WITHIN EASY REACH MADE COMFORTABLE WILL CONTINUE TO OBSERVE.
[2021-09-26] MEDS: PANTOPRAZOLE SODIUM 40 MG VIAL IV SCH (08:23)
[2021-09-26] MEDS: POTASSIUM CHLORIDE 50 ML IV SCH ×2 (09:49→10:30)
--- NOTE | 2021-09-26 10:00 | NUR ---
DR MCGILL HERE AND SEEN PATIENT AND STATED TO HAVE PATIENT READY FOR SURGERY TODAY PATIENT AWARE
[2021-09-26] MEDS ORDERED: OXYCODONE/APAP 5-325 MG TABLET PO PRN (10:30)
--- NOTE | 2021-09-26 11:04 | NUR ---
CONSCENT OBTAINED AND OR STAFF HERE AND PATIENT TAKEN TO OR FOR SURGERY ORDERED
[2021-09-26] MEDS ORDERED: MIDAZOLAM HCL 2 MG/2 ML VIAL ONE (11:32)
[2021-09-26] MEDS ORDERED: FENTANYL CITRATE 100 MCG/2 ML AMPUL ONE (11:32)
[2021-09-26] MEDS ORDERED: HYDROMORPHONE 2 MG/1 ML DISP.SYRIN ONE (11:33)
[2021-09-26] MEDS ORDERED: ROCURONIUM BROMIDE 50 MG/5 ML VIAL ONE (11:34)
[2021-09-26] MEDS ORDERED: FAMOTIDINE. 20 MG/2 ML VIAL IV ONE (11:34)
[2021-09-26] MEDS ORDERED: BUPIVACAINE/EPI PF 0.5% 10 ML VIAL ONE (11:50)
[2021-09-26] MEDS ORDERED: HYDROCODONE/APAP 5-325MG TABLET PO PRN ×2 (13:45)
--- NOTE | 2021-09-26 14:30 | NUR ---
PATIENT RETURNED BACK TO HER ROOM BY BED ASLEEP BUT EASILY AROUSABLE DENIES DISCOMFORTS ON O2 AT 2L/M BY NASAL CANULA WITH NO SOB AT THIS TIME 3 SCOPE SITES NOTED ON ABD ON HAS SOME SCANT SEROUS DRAINAGE AND PER REPORT ITS BEEN THERE WILL CONTINUE TO OBSERVE V/S CHECKED AND RECORDED DVT PUMP IN USE WILL CONTINUE TO OBSERVE.
[2021-09-26] MEDS: IV D5LR 1,000 ML IV PRN (15:00)
--- NOTE | 2021-09-26 15:59 | NUR ---
PATIENT WAS BARELY ABLE TO TOLERATE HER ONE 10 MEQ BAG OF POTASSIUM WITH ICE PACK MADELYN MD NOTIFIED STATED TO ADD LIDOCAINE TO THE SECOND BAG AND NOTED.
[2021-09-26] MEDS ORDERED: POTASSIUM CHLORIDE 10 MEQ, LIDOCAINE-MPF 1% 1 ML in IV DEXTROSE 5% 100 ML IV SCH (17:00)
[2021-09-26] MEDS: FERROUS SULFATE 325 MG TABEC PO SCH (17:58)
--- NOTE | 2021-09-26 19:30 | NUR ---
Received patient lying in bed. AAOx4. In no acute distress. On O2 at 2LPM via NC in place. O2 sat at 100%. Encourage to use incentive spirometer and patient states understanding. Pain tolerable at this time. IV site on right hand intact and patent. IVF infusing. Incision site on abdominal area cover with band aid. Needs assessed and attended to. Safety measure initiated and call light within reached.
[2021-09-26] MEDS ORDERED: ACETAMINOPHEN 325 MG TABLET PO PRN (20:00)
--- NOTE | 2021-09-26 20:33 | NUR ---
Patient requesting sleeping pills for tonight. Dr. Choudhury made aware and ordered Ambien 5mg x1 dose only. Will carry out order.
[2021-09-26] MEDS ORDERED: ZOLPIDEM 5 MG TABLET PO ONE (20:45)
[2021-09-27] MEDS: IV D5LR 1,000 ML IV PRN ×2 (03:03→18:44)
[2021-09-27 04:00] VITALS: BP 102/61
[2021-09-27] MEDS: MORPHINE SULFATE 2 MG/1 ML DISP.SYRIN IV PRN ×3 (04:01→23:22)
[2021-09-27] MEDS: CEFTRIAXONE 1 G in IV DEXTROSE 5% 50 ML IV SCH (05:09)
--- NOTE | 2021-09-27 05:49 | NUR ---
AAOx4. In no acute distress. On O2 at 2LPM via NC in place. O2 sat at 100%. Given Tylenol 650mg PO PRN per order and Morphine 2mg IV PRN per order for pain and effective. IV site on right hand intact and patent. IVF infusing. NO adverse reaction noted from IV antibiotic. Band aid changed to incision site on abdominal area . Needs attended to and met. Safety measure maintained and call light within reached.
[2021-09-27 06:49] LABS: HEMATOCRIT 29.7 % (31.2-41.9); MEAN CORPUSCULAR HEMOGLOBIN 25.2 uug (24.7-32.8); MEAN CORPUSCULAR VOLUME 75.6 fL (75.5-95.3); PLATELET COUNT (AUTO) 237 K/uL (179-408)
[2021-09-27 07:27] LABS: CREATININE 0.7 mg/dL (0.6-1.3); MAGNESIUM 2.1 mg/dL (1.8-2.4); POTASSIUM 3.9 mmol/L (3.5-5.1)
[2021-09-27] MEDS: PANTOPRAZOLE SODIUM 40 MG VIAL IV SCH (08:16)
[2021-09-27] MEDS: MULTIVITAMINS,THERAPEUTIC TABLET PO SCH (08:16)
[2021-09-27] MEDS: SERTRALINE HCL 50 MG TABLET PO SCH (08:16)
[2021-09-27] MEDS: FERROUS SULFATE 325 MG TABEC PO SCH ×2 (08:16→17:17)
--- NOTE | 2021-09-27 09:00 | NUR ---
Pt is a/o x 4, complains of abdominal incisional pain. administered prn medication and changed dressing. incision sites are clean dry and intact. Pt is ambulatory with BRP. Ng catheter has been removed. Pt's diet has been advanced to mechanical soft. Will continue to advance as tolerated. Pt is passing gas, no complaint of nausea or vomiting. Comfort measures provided, call light within reach, will continue to monitor.
[2021-09-27 12:00] VITALS: BP 109/64
[2021-09-27 16:27] VITALS: BP 108/66
[2021-09-27 20:00] VITALS: BP 122/68
[2021-09-28 04:00] VITALS: BP 117/78
[2021-09-28] MEDS: CEFTRIAXONE 1 G in IV DEXTROSE 5% 50 ML IV SCH (05:38)
[2021-09-28] MEDS: IV D5LR 1,000 ML IV PRN (05:47)
--- NOTE | 2021-09-28 05:55 | NUR ---
IV line on R hand removed d/t infiltration, new IV inserted on L forearm G#20 with ongoing D5LR 1L at 125 ml/hr. No other significant changes noted. All needs attended. Call light placed within reach. Frequent visual checks done. Will endorse to next shift.
[2021-09-28 06:52] LABS: HEMATOCRIT 28.2 % (31.2-41.9); MEAN CORPUSCULAR HEMOGLOBIN 25.5 uug (24.7-32.8); MEAN CORPUSCULAR VOLUME 76.4 fL (75.5-95.3); PLATELET COUNT (AUTO) 199 K/uL (179-408)
[2021-09-28] MEDS ORDERED: PANTOPRAZOLE SODIUM 40 MG TABLET.DR PO SCH (07:00)
[2021-09-28 07:25] LABS: CREATININE 0.6 mg/dL (0.6-1.3); MAGNESIUM 1.8 mg/dL (1.8-2.4); PHOSPHOROUS 3.7 mg/dL (2.5-4.9); POTASSIUM 3.9 mmol/L (3.5-5.1)
[2021-09-28] MEDS: FERROUS SULFATE 325 MG TABEC PO SCH (09:00)
[2021-09-28] MEDS: MULTIVITAMINS,THERAPEUTIC TABLET PO SCH (09:00)
[2021-09-28] MEDS: SERTRALINE HCL 50 MG TABLET PO SCH (09:00)
[2021-09-28 12:09] VITALS: BP 121/66
[2021-09-28] MEDS ORDERED: ONDANSETRON 4 MG/2 ML VIAL IV ONE (13:44)
[2021-09-28] MEDS ORDERED: SEVOFLURANE 250 ML BOTTLE IH ONE (13:44)
[2021-09-28] MEDS ORDERED: METOCLOPRAMIDE HCL 10 MG/2 ML VIAL IV ONE (13:44)
[2021-09-28] MEDS ORDERED: DEXAMETHASONE SOD PHOSPHATE 4 MG INJ IV ONE (13:44)
[2021-09-28] MEDS ORDERED: LIDOCAINE-MPF 2% 5 ML VIAL IJ ONE (13:44)
[2021-09-28] MEDS ORDERED: PROPOFOL 200 MG/20 ML BOTTLE IV ONE (13:44)
[2021-09-28] MEDS ORDERED: CEFAZOLIN 1 G VIAL IM ONE (13:44)
[2021-09-28] MEDS ORDERED: NEOSTIGMINE METHYLSULFATE 10 MG/10 ML VIAL IM ONE (13:44)
[2021-09-28] MEDS ORDERED: GLYCOPYRROLATE 0.2 MG/ML VIAL IJ ONE (13:44)
--- NOTE | 2021-09-28 13:49 | NUR ---
new discharge orders, all discharge instructions explained to patient, patient states understanding reminded patient to Follow with Dr. Alexandre in 1 week. Continue with current medication regimen. Return to nearest ER or call 911 if symptoms worsen. all discharge paper work signed, inventory list complete and signed. IV site removed no bleeding noted to site. upon discharge patient denies any pain or discomfort. v/s are wnl. assisted patient downstairs, gait is stable at this time.
== END 2021-09-28 13:45 | disposition home or self-care (01) | DRG 742 ==
LOC: ER 20:52 → MEDSURG3 23:55
PROC: 0UB14ZZ Excision of Left Ovary, Percutaneous Endoscopic Approach (ICD-10-PCS; principal; 2021-09-26)
DX: N83.292 Other ovarian cyst, left side (principal); N39.0 Urinary tract infection, site not specified; D50.9 Iron deficiency anemia, unspecified; F32.A Depression, unspecified; F41.9 Anxiety disorder, unspecified; Z20.822 Contact with and (suspected) exposure to COVID-19; K29.70 Gastritis, unspecified, without bleeding
CPT/HCPCS: 36415; 76856; 83605; 83735; 84100; 84703; 85025; 85610; 87086; A4663; C9113; G0378; J0690; J0696; J1100; J1170; J2001; J2060; J2250; J2270; J2405; J2765; J3010; J3480; J3490; J7042; J7120

== ENCOUNTER 2021-10-10 14:01 | Emergency (ER) | payer BC, OTHER ==
[~2021-10-10] VITALS: Ht 170.2 cm; Wt 81.6 kg
[2021-10-10] MEDS ORDERED: HYDROMORPHONE 1 MG/1 ML DISP.SYRIN IV ONE ×2 (14:15→15:45)
[2021-10-10] MEDS ORDERED: HYDROMORPHONE 1 MG/1 ML DISP.SYRIN ONE (14:28)
[2021-10-10] MEDS ORDERED: IV NORMAL SALINE 500 ML BAG IV ONE (14:30)
[2021-10-10 14:32] LABS: HEMATOCRIT 33.2 % (31.2-41.9); MEAN CORPUSCULAR HEMOGLOBIN 24.9 uug (24.7-32.8); MEAN CORPUSCULAR VOLUME 76.1 fL (75.5-95.3); PLATELET COUNT (AUTO) 266 K/uL (179-408)
[2021-10-10 14:37] LABS: CREATININE 0.6 mg/dL (0.6-1.3); POTASSIUM 3.9 mmol/L (3.5-5.1)
[2021-10-10 14:43] LABS: BILIRUBIN,TOTAL 0.2 mg/dL (0.2-1.0); TOTAL PROTEIN, SERUM 8.5 g/dL (6.4-8.2)
[2021-10-10 15:00] LABS: *BILIRUBIN,URIN NEGATIVE (NEGATIVE); *BLOOD, URINE NEGATIVE (NEGATIVE); *CLARITY,URINE CLEAR (CLEAR); *COLOR,URINE YELLOW (YELLOW); *KETONES,URINE NEGATIVE (NEGATIVE); *UROBILINOGEN,URINE 0.2 E.U./dl (NORMAL); LEUKOCYTE ESTERASE ,URINE NEGATIVE (NEGATIVE); NITRITE, URINE NEGATIVE (NEGATIVE); PH,URINE 6.5 (5.0-8.0); UGLUCOSE NEGATIVE (NEGATIVE)
[2021-10-10 15:19] LABS: *URINE HCG, QUAL NEG (NEGATIVE)
--- NOTE | 2021-10-10 15:31 | NUR ---
assissted md with vaginal exam.
[2021-10-10] MEDS ORDERED: IV NORMAL SALINE 250 ML IV ONE (15:45)
[2021-10-10] MEDS ORDERED: IOHEXOL 300MG/ML 100 ML INFUS..BTL ONE (15:45)
[2021-10-10] MEDS ORDERED: SWABABLE VALVE TRANSFER SET EA MC ONE (15:45)
[2021-10-10 17:01] VITALS: BP 121/71
--- NOTE | 2021-10-10 17:01 | NUR ---
Patient discharged to home in stable condition. Written and verbal after care instructions given. Patient verbalizes understanding of instructions. Stressed follow up or return to ER for worsening s/s.pt walks in steady gait. pt deneis pain/dizziness/nausea.
== END 2021-10-10 17:04 | disposition home or self-care (01) ==
LOC: ER 14:01
DX: R10.31 Right lower quadrant pain (principal); Z86.2 Personal history of diseases of the blood and blood-forming organs and certain disorders involving the immune mechanism; Z79.899 Other long term (current) drug therapy
CPT/HCPCS: 36415; 74177; 76705; 76856; 80053; 81003; 83690; 84703; 85025; 96361; 96374; 99285; J1170; J7040; Q9967; A4663

== ENCOUNTER 2021-12-03 09:23 | Emergency (ER) | payer BC, OTHER ==
[~2021-12-03] VITALS: Ht 170.2 cm; Wt 81.6 kg
[2021-12-03] MEDS ORDERED: KETOROLAC TROMETHAMINE 15 MG INJ IM ONE (09:45)
[2021-12-03] MEDS ORDERED: DEXAMETHASONE SOD PHOSPHATE 4 MG INJ IM ONE (09:45)
[2021-12-03] MEDS ORDERED: KETOROLAC TROMETHAMINE 15 MG INJ ONE (09:52)
[2021-12-03] MEDS ORDERED: DEXAMETHASONE SOD PHOSPHATE 10 MG INJ ONE (09:52)
[2021-12-03] MEDS ORDERED: ACET-73 PO (11:09)
[2021-12-03] MEDS ORDERED: IBUP-1955 PO (11:09)
--- NOTE | 2021-12-03 13:33 | NUR ---
Gave pt RX and d/c instructions, pt verbalized understanding.
== END 2021-12-03 13:47 | disposition home or self-care (01) ==
LOC: ER 09:24
DX: J02.9 Acute pharyngitis, unspecified (principal); M79.10 Myalgia, unspecified site; Z20.822 Contact with and (suspected) exposure to COVID-19
CPT/HCPCS: 99284; 87426; 87400; 36415; 96372 ×2; U0003; C9803; J1100; J1885; A4663

== ENCOUNTER 2021-12-05 08:43 | Emergency (ER) | payer BC, OTHER ==
[~2021-12-05] VITALS: Ht 170.2 cm; Wt 81.6 kg
[~2021-12-05 08:43] MED LIST changes: +ACET-73 PO; +IBUP-1955 PO
--- NOTE | 2021-12-05 09:01 | NUR ---
[email or web address], medical screening exam in progress
[2021-12-05] MEDS ORDERED: DEXAMETHASONE SOD PHOSPHATE 4 MG INJ IM ONE (09:15)
[2021-12-05] MEDS ORDERED: ACETAMINOPHEN ES 500 MG TABLET PO ONE (09:15)
[2021-12-05] MEDS ORDERED: KETOROLAC TROMETHAMINE 15 MG INJ IM ONE (09:15)
[2021-12-05] MEDS ORDERED: DEXAMETHASONE SOD PHOSPHATE 10 MG INJ ONE (09:16)
[2021-12-05] MEDS ORDERED: KETOROLAC TROMETHAMINE 15 MG INJ ONE (09:17)
[2021-12-05] MEDS ORDERED: ACETAMINOPHEN ES 500 MG TABLET ONE (09:17)
--- NOTE | 2021-12-05 10:24 | NUR ---
Patient wants some crackers and juice, notified and said to give viscous lidocaine orally for now.
[2021-12-05] MEDS ORDERED: LIDOCAINE VISCUS 2% 15 ML UDC ONE (10:38)
[2021-12-05] MEDS ORDERED: LIDOCAINE VISCUS 2% 15 ML UDC MM ONE (10:45)
[2021-12-05] MEDS ORDERED: PRED20TA PO (11:05)
[2021-12-05] MEDS ORDERED: AMOX-430 PO (11:05)
--- NOTE | 2021-12-05 11:11 | NUR ---
Patient discharged to home in stable condition with brisk steady gait. Written and verbal after care instructions given. Patient verbalized understanding and compliance of instructions. Stressed follow up with primary doctor or return to ER for worsening s/s.
== END 2021-12-05 11:11 | disposition home or self-care (01) ==
LOC: ER 08:43
DX: J02.9 Acute pharyngitis, unspecified (principal); U07.1 COVID-19
CPT/HCPCS: 99284; 71045; 86403; 87070; 96372 ×2; J1100; J1885; A4663; A9150

== ENCOUNTER 2022-01-28 23:17 | Emergency (ER) | payer BC, OTHER ==
[~2022-01-28] VITALS: Ht 170.2 cm; Wt 81.6 kg
[~2022-01-28 23:17] MED LIST changes: +AMOX-430 PO; +PRED20TA PO
[2022-01-28] MEDS ORDERED: ONDANSETRON 4 MG/2 ML VIAL IV ONE (23:30)
[2022-01-28] MEDS ORDERED: IV NORMAL SALINE 1000 ML BAG IV ONE (23:30)
[2022-01-28] MEDS ORDERED: ONDANSETRON 4 MG/2 ML VIAL ONE (23:43)
[2022-01-28 23:52] LABS: HEMATOCRIT 34.6 % (31.2-41.9); MEAN CORPUSCULAR HEMOGLOBIN 23.7 uug (24.7-32.8); MEAN CORPUSCULAR VOLUME 73.2 fL (75.5-95.3); PLATELET COUNT (AUTO) 220 K/uL (179-408)
[2022-01-28 23:59] LABS: CARBON DIOXIDE 25 mmol/L (21-32); CHLORIDE 103 mmol/L (98-107); GLUCOSE 113 mg/dL (74-106); POTASSIUM 3.7 mmol/L (3.5-5.1); UREA NITROGEN, BLOOD 13 mg/dL (7-18)
[2022-01-29 00:04] LABS: ALANINE AMINOTRANSFERASE 28 U/L (14-59); ALKALINE PHOSPHATASE 59 U/L (50-136); ASPARTATE AMINOTRANSFERASE 9 U/L (15-37); BILIRUBIN,DIRECT < 0.1 mg/dL (0.0-0.2); BILIRUBIN,TOTAL 0.4 mg/dL (0.2-1.0); LIPASE 91 U/L (73-393); TOTAL PROTEIN, SERUM 8.2 g/dL (6.4-8.2)
[2022-01-29] MEDS ORDERED: IV NORMAL SALINE 1000 ML BAG IV ONE ×2 (00:30→02:45)
--- NOTE | 2022-01-29 00:56 | NUR ---
Pt able to urinate and specimen sent to lab. No active n/v at this time. No abdominal pain.
--- NOTE | 2022-01-29 01:26 | NUR ---
f/u urine result from the lab.
[2022-01-29 01:43] LABS: *BILIRUBIN,URIN NEGATIVE (NEGATIVE); *BLOOD, URINE NEGATIVE (NEGATIVE); *CLARITY,URINE CLEAR (CLEAR); *COLOR,URINE YELLOW (YELLOW); *KETONES,URINE NEGATIVE (NEGATIVE); *UROBILINOGEN,URINE 0.2 E.U./dl (NORMAL); LEUKOCYTE ESTERASE ,URINE NEGATIVE (NEGATIVE); NITRITE, URINE NEGATIVE (NEGATIVE); PH,URINE 5.5 (5.0-8.0); UGLUCOSE NEGATIVE (NEGATIVE)
[2022-01-29 01:44] LABS: *URINE HCG, QUAL NEGATIVE (NEGATIVE)
[2022-01-29] MEDS ORDERED: PROCHLORPERAZINE EDISYLATE 10 MG/2 ML VIAL ONE (01:58)
[2022-01-29] MEDS ORDERED: PROCHLORPERAZINE EDISYLATE 10 MG/2 ML VIAL IV ONE (02:00)
[2022-01-29] MEDS ORDERED: ONDA4TAB5 PO (03:51)
[2022-01-29 04:11] VITALS: BP 116/74
== END 2022-01-29 04:12 | disposition home or self-care (01) ==
LOC: ER 23:20
DX: R11.2 Nausea with vomiting, unspecified (principal); R00.0 Tachycardia, unspecified
CPT/HCPCS: 99284; 96374; 96361 ×2; 80076; 80048; 83690; 85025; 36415; 96375; 81003; 84703; 93005; J2405; J0780; J7040 ×3

== ENCOUNTER 2022-09-03 05:38 | Emergency (ER) | payer BC, OTHER ==
[~2022-09-03] VITALS: Ht 170.2 cm; Wt 83.9 kg
[~2022-09-03 05:38] MED LIST changes: +ONDA4TAB5 PO
--- NOTE | 2022-09-03 06:50 | NUR ---
Patient laying in bed, sister at bedside.
[2022-09-03] MEDS ORDERED: LORAZEPAM 1 MG TABLET ONE (06:55)
[2022-09-03] MEDS ORDERED: LORAZEPAM 0.5 MG TABLET PO ONE ×2 (07:00→07:45)
--- NOTE | 2022-09-03 07:03 | NUR ---
Report given to KIRILL Gu.
[2022-09-03] MEDS ORDERED: LORAZEPAM 0.5 MG TABLET ONE (07:45)
[2022-09-03 07:52] VITALS: BP 110/70
== END 2022-09-03 07:52 | disposition home or self-care (01) ==
LOC: ER 05:42
DX: F41.8 Other specified anxiety disorders (principal); Z79.899 Other long term (current) drug therapy; Z79.2 Long term (current) use of antibiotics
CPT/HCPCS: A4663

== ENCOUNTER 2022-09-27 15:08 | Outpatient (CLI) | payer BC, OTHER ==
[2022-09-27 15:23] LABS: HEMATOCRIT 35.3 % (31.2-41.9); MEAN CORPUSCULAR HEMOGLOBIN 23.9 uug (24.7-32.8); MEAN CORPUSCULAR VOLUME 73.8 fL (75.5-95.3); PLATELET COUNT (AUTO) 248 K/uL (179-408)
== END 2022-09-27 23:59 | disposition home or self-care (01) ==
LOC: LAB 15:08
PROVIDERS: ATTEND Obstetrics & Gynecology
DX: N92.6 Irregular menstruation, unspecified (principal)
CPT/HCPCS: 36415; 85025

== ENCOUNTER 2022-12-21 16:35 | Emergency (ER) | payer BC, OTHER ==
[~2022-12-21] VITALS: Ht 170.2 cm; Wt 83.9 kg
[2022-12-21] MEDS ORDERED: IV NORMAL SALINE 1000 ML BAG IV ONE (17:00)
[2022-12-21] MEDS ORDERED: ONDANSETRON 4 MG/2 ML VIAL IV ONE (17:00)
[2022-12-21 17:12] LABS: BASOPHILS % (AUTO) 0.8 % (0.0-2.0); EOSINOPHILS # (AUTO) 0.1 K/uL (0.0-0.7); EOSINOPHILS % (AUTO) 2.6 % (0.0-7.0); HEMATOCRIT 39.1 % (31.2-41.9); HEMOGLOBIN 12.8 g/dL (10.9-14.3); LYMPHOCYTES # (AUTO) 1.2 K/uL (0.8-4.8); LYMPHOCYTES % (AUTO) 22.1 % (20.5-51.5); MEAN CORPUSCULAR HEMOGLOBIN 25.2 uug (24.7-32.8); MEAN CORPUSCULAR HGB CONC 33 g/dL (32.3-35.6); MEAN CORPUSCULAR VOLUME 76.6 fL (75.5-95.3); MONOCYTES # (AUTO) 0.5 K/uL (0.1-1.30); MONOCYTES % (AUTO) 8.5 % (0.0-11.0); NEUTROPHILS # (AUTO) 3.6 K/uL (1.8-8.9); PLATELET COUNT (AUTO) 183 K/uL (179-408); RED CELL DISTRIBUTION WIDTH 16.7 % (12.3-17.7); WHITE BLOOD COUNT (AUTO) 5.5 K/uL (3.8-11.8)
[2022-12-21 17:16] LABS: *BLOOD, URINE 3+ (NEGATIVE); *KETONES,URINE NEGATIVE (NEGATIVE); *PROTEIN,URINE 1+ (NEGATIVE); *UROBILINOGEN,URINE 0.2 E.U./dl (NORMAL); LEUKOCYTE ESTERASE ,URINE NEGATIVE (NEGATIVE); NITRITE, URINE NEGATIVE (NEGATIVE); PH,URINE 5.5 (5.0-8.0); UGLUCOSE NEGATIVE (NEGATIVE)
[2022-12-21] MEDS ORDERED: ONDANSETRON 4 MG/2 ML VIAL ONE (17:17)
[2022-12-21 17:22] LABS: DIFFERENTIAL COMMENT 1
[2022-12-21 17:25] LABS: *URINE HCG, QUAL NEGATIVE (NEGATIVE)
[2022-12-21 17:28] LABS: *BILIRUBIN,URIN 1+ (NEGATIVE); *CLARITY,URINE SLIGHTLY HAZY (CLEAR)
[2022-12-21 17:29] LABS: *COLOR,URINE YELLOW (YELLOW)
[2022-12-21 17:32] LABS: BILIRUBIN,DIRECT 0.1 mg/dL (0.0-0.2); BILIRUBIN,TOTAL 0.4 mg/dL (0.2-1.0); CALCIUM 8.7 mg/dL (8.5-10.1); CREATININE 0.9 mg/dL (0.6-1.3); POTASSIUM 3.7 mmol/L (3.5-5.1)
[2022-12-21 17:33] LABS: TOTAL PROTEIN, SERUM 8.2 g/dL (6.4-8.2)
[2022-12-21] MEDS ORDERED: DICY20TA11 PO (17:48)
[2022-12-21] MEDS ORDERED: ONDA4TAB5 PO (17:48)
[2022-12-21 17:53] LABS: WBC,URINE 0-3 /HPF (0-3)
[2022-12-21 17:55] LABS: BACTERIA,URINE MODERATE /HPF (NONE SEEN); MUCUS,URINE MODERATE /LPF (0-FEW); SQUAMOUS EPITHELIAL CELL,UR MODERATE /HPF (NONE SEEN)
[2022-12-21] MEDS: DICYCLOMINE HCL 20 MG/2 ML AMPUL IM SCH ×3 (17:56→18:04)
[2022-12-21] MEDS ORDERED: DICYCLOMINE HCL 20 MG TABLET ONE (17:58)
[2022-12-21] MEDS ORDERED: KETOROLAC TROMETHAMINE 30 MG INJ ONE (17:59)
[2022-12-21] MEDS ORDERED: KETOROLAC TROMETHAMINE 30 MG INJ IVP ONE (18:00)
[2022-12-21] MEDS: DICYCLOMINE HCL 20 MG TABLET PO SCH ×2 (18:03→18:04)
[2022-12-21 18:24] VITALS: BP 122/80; TEMP 98; O2SAT 99
== END 2022-12-21 18:30 | disposition home or self-care (01) ==
LOC: ER 16:36
DX: R10.9 Unspecified abdominal pain (principal); R11.10 Vomiting, unspecified; R19.7 Diarrhea, unspecified; Z79.2 Long term (current) use of antibiotics; Z79.899 Other long term (current) drug therapy
CPT/HCPCS: 99284; 96374; 96361; 96375; 80076; 80048; 81001; 84703; 83690; 85025; 36415; J1885; J2405; J7040; A4663

== ENCOUNTER 2023-09-28 18:14 | Emergency (ER) | payer BC, OTHER ==
[~2023-09-28] VITALS: Ht 170.2 cm; Wt 81.6 kg
[~2023-09-28 18:14] MED LIST changes: +DICY20TA11 PO
[2023-09-28] MEDS ORDERED: AMOX-430 PO (19:06)
[2023-09-28] MEDS ORDERED: AMOXICILLIN-CLAVUL 875-125MG TABLET ONE (19:08)
[2023-09-28] MEDS ORDERED: ACETAMINOPHEN ES 500 MG TABLET ONE (19:08)
[2023-09-28] MEDS ORDERED: TDAP DIPH,PERTUSS,TET VAC/PF 0.5 ML DISP.SYRIN IM ONE (19:14)
[2023-09-28] MEDS: AMOXICILLIN-CLAVUL 875-125MG TABLET PO ONE (19:15)
[2023-09-28] MEDS: ACETAMINOPHEN ES 500 MG TABLET PO ONE (19:15)
[2023-09-28] MEDS: TDAP DIPH,PERTUSS,TET VAC/PF 0.5 ML DISP.SYRIN IM ONE (19:19)
[2023-09-28 19:21] VITALS: BP 135/79; TEMP 98.6; O2SAT 100
== END 2023-09-28 19:22 | disposition home or self-care (01) ==
LOC: ER 18:15
DX: S81.031A Puncture wound without foreign body, right knee, initial encounter (principal); J40 Bronchitis, not specified as acute or chronic; F32.A Depression, unspecified; D50.0 Iron deficiency anemia secondary to blood loss (chronic); Z98.890 Other specified postprocedural states; Z79.899 Other long term (current) drug therapy; W54.0XXA Bitten by dog, initial encounter; Y93.89 Activity, other specified; Y92.89 Other specified places as the place of occurrence of the external cause; Y99.8 Other external cause status
CPT/HCPCS: 90715; A4606; A4663; A9150

== ENCOUNTER 2023-10-23 07:00 | Inpatient (IN) | payer BC, OTHER ==
[~2023-10-23] VITALS: Ht 170.2 cm; Wt 81.6 kg
[2023-10-23] MEDS ORDERED: VANCOMYCIN 1000 MG VIAL ONE (07:17)
[2023-10-23 07:36] LABS: BASOPHILS # (AUTO) 0.1 K/UL (0.0-0.2); BASOPHILS % (AUTO) 1.4 % (0.0-2.0); EOSINOPHILS # (AUTO) 0.2 K/uL (0.0-0.7); HEMATOCRIT 37.3 % (31.2-41.9); HEMOGLOBIN 12.2 g/dL (10.9-14.3); LYMPHOCYTES # (AUTO) 1.9 K/uL (0.8-4.8); LYMPHOCYTES % (AUTO) 28.9 % (20.5-51.5); MEAN CORPUSCULAR HEMOGLOBIN 24.8 uug (24.7-32.8); MEAN CORPUSCULAR HGB CONC 33 g/dL (32.3-35.6); MONOCYTES # (AUTO) 0.5 K/uL (0.1-1.30); MONOCYTES % (AUTO) 7.4 % (0.0-11.0); NEUTROPHILS # (AUTO) 3.8 K/uL (1.8-8.9); NEUTROPHILS % (AUTO) 59.3 % (38.5-71.5); PLATELET COUNT (AUTO) 254 K/uL (179-408); RED BLOOD CELL COUNT(AUTO) 4.91 MIL/uL (3.63-4.92); RED CELL DISTRIBUTION WIDTH 17.2 % (12.3-17.7); WHITE BLOOD COUNT (AUTO) 6.5 K/uL (3.8-11.8)
[2023-10-23 07:49] LABS: *BILIRUBIN,URIN NEGATIVE (NEGATIVE); *CLARITY,URINE CLEAR (CLEAR); *COLOR,URINE YELLOW (YELLOW); *KETONES,URINE NEGATIVE (NEGATIVE); *PROTEIN,URINE NEGATIVE (NEGATIVE); *UROBILINOGEN,URINE 0.2 E.U./dl (NORMAL); LEUKOCYTE ESTERASE ,URINE NEGATIVE (NEGATIVE); NITRITE, URINE NEGATIVE (NEGATIVE); PH,URINE 5.5 (5.0-8.0); UGLUCOSE NEGATIVE (NEGATIVE)
[2023-10-23 07:53] LABS: CALCIUM 9.1 mg/dL (8.5-10.1); CREATININE 0.8 mg/dL (0.6-1.3)
[2023-10-23 07:57] LABS: *BLOOD, URINE TRACE (NEGATIVE)
[2023-10-23 07:58] LABS: ALBUMIN 3.8 g/dL (3.4-5.0); BILIRUBIN,TOTAL 0.4 mg/dL (0.2-1.0); DIFFERENTIAL COMMENT 1
[2023-10-23 08:13] LABS: *URINE HCG, QUAL NEGATIVE (NEGATIVE)
[2023-10-23] MEDS ORDERED: FENTANYL CITRATE 100 MCG/2 ML AMPUL ONE (08:16)
[2023-10-23] MEDS ORDERED: FAMOTIDINE. 20 MG/2 ML VIAL IV ONE (08:16)
[2023-10-23] MEDS ORDERED: ROCURONIUM BROMIDE 50 MG/5 ML VIAL ONE (08:16)
[2023-10-23] MEDS ORDERED: MIDAZOLAM HCL 2 MG/2 ML VIAL ONE (08:16)
[2023-10-23] MEDS ORDERED: HYDROMORPHONE 2 MG/1 ML DISP.SYRIN ONE (09:11)
[2023-10-23] MEDS ORDERED: ONDANSETRON 4 MG/2 ML VIAL IV PRN (10:30)
[2023-10-23] MEDS ORDERED: ACETAMINOPHEN ES 500 MG TABLET ONE (11:58)
[2023-10-23] MEDS ORDERED: IV D5W-0.45% NS +20 KCL 1,000 ML IV ONE (12:11)
[2023-10-23 13:45] VITALS: BP 117/71; TEMP 98.1; O2SAT 100
[2023-10-23] MEDS: HYDROCODONE/APAP 10-325 MG TABLET PO PRN (14:04)
[2023-10-23] MEDS: MORPHINE SULFATE 4 MG/1 ML DISP.SYRIN IV PRN (14:21)
[2023-10-23] MEDS ORDERED: SERT100T PO (14:27)
[2023-10-23 15:05] LABS: BACTERIA,URINE FEW /HPF (NONE SEEN); SQUAMOUS EPITHELIAL CELL,UR FEW /HPF (NONE SEEN); WBC,URINE 0-3 /HPF (0-3)
[2023-10-23] MEDS: CEFAZOLIN 1 G in IV DEXTROSE 5% 50 ML IV SCH (15:48)
[2023-10-23 16:19] VITALS: BP 110/66; TEMP 98.3; O2SAT 96
[2023-10-23 20:34] VITALS: BP 104/63; TEMP 99.1; O2SAT 96
[2023-10-23] MEDS: LORAZEPAM 0.5 MG TABLET PO ONE (21:59)
[2023-10-24] MEDS: IV D5W-0.45% NS +20 KCL 1,000 ML IV PRN (03:22)
[2023-10-24 06:09] VITALS: BP 92/56; TEMP 98.5; O2SAT 98
[2023-10-24] MEDS ORDERED: PROPOFOL 200 MG/20 ML BOTTLE ONE (08:30)
[2023-10-24] MEDS ORDERED: HYDROMORPHONE 1 MG/1 ML DISP.SYRIN IV PRN (10:15)
[2023-10-24] MEDS: KETOROLAC TROMETHAMINE 30 MG INJ IVP ONE (11:14)
[2023-10-24 11:51] VITALS: BP 94/59; TEMP 98; O2SAT 100
[2023-10-24] MEDS ORDERED: PROP10TA10 PO (13:07)
[2023-10-24] MEDS: SERTRALINE HCL 100 MG TABLET PO SCH (15:41)
[2023-10-24 16:00] VITALS: BP 101/56; TEMP 98.5; O2SAT 98
[2023-10-24] MEDS ORDERED: KETOROLAC TROMETHAMINE 30 MG INJ IVP PRN (16:00)
[2023-10-24] MEDS ORDERED: KETOROLAC TROMETHAMINE 15 MG INJ IVP PRN (16:00)
[2023-10-24] MEDS ORDERED: PROPRANOLOL HCL 10 MG TABLET PO PRN (17:30)
[2023-10-24] MEDS ORDERED: HYDROCODONE/APAP 10-325 MG TABLET PO PRN ×2 (18:00→19:30)
[2023-10-24] MEDS ORDERED: KETOROLAC TROMETHAMINE 10 MG TABLET PO PRN (18:00)
[2023-10-24] MEDS ORDERED: TRAMADOL HCL 50 MG TABLET PO PRN (19:30)
[2023-10-24] MEDS ORDERED: HYDR-3980 PO (20:15)
[2023-10-25] MEDS ORDERED: SERTRALINE HCL 100 MG TABLET PO SCH (09:00)
== END 2023-10-24 20:54 | disposition home or self-care (01) | DRG 494 ==
LOC: DS 07:00 → MEDSURG3 13:53
PROVIDERS: ADMIT Internal Medicine; ATTEND Internal Medicine
PROC: 0QSJ04Z Reposition Right Fibula with Internal Fixation Device, Open Approach (ICD-10-PCS; principal; 2023-10-23)
DX: S82.451A Displaced comminuted fracture of shaft of right fibula, initial encounter for closed fracture (principal); Z98.891 History of uterine scar from previous surgery; X58.XXXA Exposure to other specified factors, initial encounter; Y92.89 Other specified places as the place of occurrence of the external cause; F41.0 Panic disorder [episodic paroxysmal anxiety]
CPT/HCPCS: 36415; 73590; 84703; 85025; 85610; 85730; A4649; A4663; A9150; C1713; G0378; J0690; J1100; J1170; J1885; J2250; J2270; J2405; J2765; J3010; J3370; J3490; J7120

== ENCOUNTER 2024-04-15 22:32 | Emergency (ER) | payer BC, OTHER ==
[~2024-04-15] VITALS: Ht 170.2 cm; Wt 84.8 kg
[~2024-04-15 22:32] MED LIST changes: -ACET-73 PO; -AMOX-430 PO; -DICY20TA11 PO; -FERR325T28 PO; +HYDR-3980 PO; -IBUP-1955 PO; -MULT-594 PO; -ONDA4TAB5 PO; -PRED20TA PO; +PROP10TA10 PO; +SERT100T PO; -SERT50TA PO
[2024-04-15] MEDS ORDERED: KETOROLAC TROMETHAMINE 30 MG INJ ONE (22:48)
[2024-04-15] MEDS: KETOROLAC TROMETHAMINE 30 MG INJ IM ONE (22:55)
[2024-04-15] MEDS ORDERED: IBUP-1957 PO (23:21)
[2024-04-15 23:44] VITALS: BP 109/70; TEMP 97.8; O2SAT 95
== END 2024-04-15 23:37 | disposition home or self-care (01) ==
LOC: ER 22:32
DX: S60.221A Contusion of right hand, initial encounter (principal); F32.A Depression, unspecified; F41.9 Anxiety disorder, unspecified; M81.0 Age-related osteoporosis without current pathological fracture; Z79.899 Other long term (current) drug therapy; Z87.19 Personal history of other diseases of the digestive system; Z88.7 Allergy status to serum and vaccine; W18.30XA Fall on same level, unspecified, initial encounter; Y93.89 Activity, other specified; Y92.89 Other specified places as the place of occurrence of the external cause; Y99.8 Other external cause status
CPT/HCPCS: 29130; 73130; 96372; 99283; J1885; A4606; A4663

== ENCOUNTER 2024-07-27 07:45 | Emergency (ER) | payer BC, OTHER ==
[~2024-07-27] VITALS: Ht 165.1 cm; Wt 75.3 kg
[~2024-07-27 07:45] MED LIST changes: +IBUP-1957 PO
[2024-07-27] MEDS ORDERED: PHENAZOPYRIDINE HCL 100 MG TABLET ONE (07:56)
[2024-07-27] MEDS ORDERED: ACETAMINOPHEN 500 MG TABLET ONE (07:56)
[2024-07-27] MEDS: ACETAMINOPHEN 500 MG TABLET PO ONE (07:58)
[2024-07-27] MEDS: PHENAZOPYRIDINE HCL 100 MG TABLET PO ONE (07:58)
[2024-07-27 08:17] LABS: *BILIRUBIN,URIN 1+ (NEGATIVE); *BLOOD, URINE 2+ (NEGATIVE); *CLARITY,URINE CLEAR (CLEAR); *COLOR,URINE Orange (YELLOW); *KETONES,URINE TRACE (NEGATIVE); *PROTEIN,URINE 2+ (NEGATIVE); LEUKOCYTE ESTERASE ,URINE 3+ (NEGATIVE); NITRITE, URINE POSITIVE (NEGATIVE); UGLUCOSE TRACE (NEGATIVE)
[2024-07-27 08:19] LABS: BACTERIA,URINE MODERATE /HPF (NONE SEEN); RBC,URINE 20-50 /HPF (0-3); WBC,URINE 50-80 /HPF (0-3)
[2024-07-27 08:20] LABS: *URINE HCG, QUAL NEGATIVE (NEGATIVE); SQUAMOUS EPITHELIAL CELL,UR FEW /HPF (NONE SEEN); URINE AMORPHOUS URATE FEW /HPF
[2024-07-27] MEDS ORDERED: KETOROLAC TROMETHAMINE 30 MG INJ ONE (08:43)
[2024-07-27] MEDS: KETOROLAC TROMETHAMINE 30 MG INJ IVP ONE (08:45)
[2024-07-27] MEDS: IV NORMAL SALINE 1000 ML BAG IV ONE (08:45)
[2024-07-27] MEDS ORDERED: CEFTRIAXONE /D5W 50ML IVPB **ER PYXIS IV ONE (08:51)
[2024-07-27 09:01] LABS: CALCIUM 8.7 mg/dL (8.5-10.1); CREATININE 0.9 mg/dL (0.6-1.3); POTASSIUM 4.1 mmol/L (3.5-5.1)
[2024-07-27] MEDS ORDERED: IOHEXOL 300MG/ML 100 ML INFUS..BTL ONE (09:04)
[2024-07-27] MEDS ORDERED: SWABABLE VALVE TRANSFER SET EA MC ONE (09:05)
[2024-07-27] MEDS ORDERED: IV NORMAL SALINE 250 ML IV ONE (09:06)
[2024-07-27] MEDS: CEFTRIAXONE 2 G in IV DEXTROSE 5% 100 ML IV ONE (09:28)
[2024-07-27 09:35] LABS: BASOPHILS # (AUTO) 0.1 K/UL (0.0-0.2); DIFFERENTIAL COMMENT 0; EOSINOPHILS # (AUTO) 0.1 K/uL (0.0-0.7); HEMATOCRIT 35.3 % (31.2-41.9); HEMOGLOBIN 11.5 g/dL (10.9-14.3); LYMPHOCYTES % (AUTO) 20.3 % (20.5-51.5); MEAN CORPUSCULAR HEMOGLOBIN 25.4 uug (24.7-32.8); MEAN CORPUSCULAR HGB CONC 33 g/dL (32.3-35.6); MEAN CORPUSCULAR VOLUME 77.9 fL (75.5-95.3); MONOCYTES # (AUTO) 0.4 K/uL (0.1-1.30); MONOCYTES % (AUTO) 7.5 % (0.0-11.0); NEUTROPHILS # (AUTO) 3.5 K/uL (1.8-8.9); NEUTROPHILS % (AUTO) 68.2 % (38.5-71.5); PLATELET COUNT (AUTO) 184 K/uL (179-408); RED BLOOD CELL COUNT(AUTO) 4.53 MIL/uL (3.63-4.92); RED CELL DISTRIBUTION WIDTH 16.5 % (12.3-17.7); WHITE BLOOD COUNT (AUTO) 5.1 K/uL (3.8-11.8)
[2024-07-27] MEDS ORDERED: SULF1TAB48 PO (09:55)
[2024-07-27 10:30] VITALS: BP 120/75; TEMP 97.9; O2SAT 99
== END 2024-07-27 10:31 | disposition home or self-care (01) ==
LOC: ER 07:45
DX: N39.0 Urinary tract infection, site not specified (principal); F32.A Depression, unspecified; F41.9 Anxiety disorder, unspecified; Z79.899 Other long term (current) drug therapy; Z87.19 Personal history of other diseases of the digestive system; Z88.7 Allergy status to serum and vaccine; Z60.2 Problems related to living alone
CPT/HCPCS: 99285; 74177; 96365; 96361; 96375; 80048; 81001; 84703; 85025; 87086; 36415; J1885; J0696 ×2; Q9967; J7040; A4606; A4663; A9150

== ENCOUNTER 2025-02-04 13:42 | Emergency (ER) | payer BC, OTHER ==
[~2025-02-04] VITALS: Ht 170.2 cm; Wt 81.6 kg
[~2025-02-04 13:42] MED LIST changes: +SULF1TAB48 PO
[2025-02-04 14:14] VITALS: BP 120/74
[2025-02-04] MEDS ORDERED: AZIT500T2 PO (16:00)
[2025-02-04] MEDS ORDERED: PRED50TA PO (16:01)
[2025-02-04 16:31] VITALS: BP 120/74; TEMP 98.5; O2SAT 98
== END 2025-02-04 16:32 | disposition home or self-care (01) ==
LOC: ER 13:42
DX: J18.9 Pneumonia, unspecified organism (principal); F41.9 Anxiety disorder, unspecified; Z79.52 Long term (current) use of systemic steroids; Z79.899 Other long term (current) drug therapy; Z88.7 Allergy status to serum and vaccine; Z98.890 Other specified postprocedural states; Z60.2 Problems related to living alone; Z20.822 Contact with and (suspected) exposure to COVID-19
CPT/HCPCS: A4606; A4663